=== PATIENT | male | born 1965 | race Caucasian/White ===

== ENCOUNTER 2017-02-01 17:31 | Emergency (ER) | payer OTHER ==
[~2017-02-01] VITALS: Ht 172.7 cm; Wt 106.0 kg
[~2017-02-01 17:31] MED LIST: CEPHALEXIN500 MG PO; LORTAB5 PO; VIAGRA100 MG PO
[2017-02-01] MEDS ORDERED: CEPHALEXIN500 MG PO (18:18)
[2017-02-01] MEDS ORDERED: NORCO1 TA1 PO (18:18)
[2017-02-01 18:31] VITALS: BP 159/100
== END 2017-02-01 18:44 | disposition home or self-care (01) | DRG 605 ==
LOC: ED 17:31
PROC: 0HQEXZZ Repair Left Lower Arm Skin, External Approach (ICD-10-PCS; principal; 2017-02-01)
DX: S51.811A Laceration without foreign body of right forearm, initial encounter (principal); S61.512A Laceration without foreign body of left wrist, initial encounter; S60.512A Abrasion of left hand, initial encounter; S50.812A Abrasion of left forearm, initial encounter; W01.118A Fall on same level from slipping, tripping and stumbling with subsequent striking against other sharp object, initial encounter; Y93.01 Activity, walking, marching and hiking; Y92.008 Other place in unspecified non-institutional (private) residence as the place of occurrence of the external cause